=== PATIENT | female | born 1985 | race Caucasian/White ===

== ENCOUNTER 2017-10-17 08:48 | Emergency (ER) | payer BC ==
--- NOTE | 2017-10-17 08:52 | PHYS DOC ---
Adult General Chief Complaint Chief Complaint: back pain HPI HPI Patient is a 32 year old female who presents with low back pain, right sided hip pain with intermittent numbness in right leg. She states he's had issues with her back over the last several years and usually when it flares up she rests overnight and she scared to go the next day. She states this flared up about 2-3 weeks ago she seen a chiropractor 5 times. 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 She states the pain is mainly in the right hip and goes down the back of her leg. She states she is having some intermittent numbness of the thigh and calf that resolves during the day. She states it's worse when she tries to bend over and then tries to move her leg up to like her shoes she states it's very difficult to do. She denies any focal weakness in her leg. She denies any trauma to her back. She does have an appointment with orthopedic surgeon on of this week. He told her over the phone she might have a herniated disc. Review of Systems Review of Systems Constitutional: Denies fever or chills [] Eyes: Denies change in visual acuity, redness, or eye pain [] HENT: Denies nasal congestion or sore throat [] Respiratory: Denies cough or shortness of breath [] Cardiovascular: No additional information not addressed in HPI [] GI: Denies abdominal pain, nausea, vomiting, bloody stools or diarrhea [] : Denies dysuria or hematuria [] Musculoskeletal: Positive for back pain Integument: Denies rash or skin lesions [] Neurologic: Denies headache, focal weakness or sensory changes [] Endocrine: Denies polyuria or polydipsia [] All other systems were reviewed and found to be within normal limits, except as documented in this note. Physical Exam Physical Exam Constitutional: Well developed, well nourished, no acute distress, non-toxic appearance. [] HENT: Normocephalic, atraumatic, bilateral external ears normal, oropharynx moist, no oral exudates, nose normal. [] Eyes: PERRLA, EOMI, conjunctiva normal, no discharge. [] Neck: Normal range of motion, no tenderness, supple, no stridor. [] Cardiovascular:Heart rate regular rhythm, no murmur [] Lungs & Thorax: Bilateral breath sounds clear to auscultation [] Abdomen: Bowel sounds normal, soft, no tenderness, no masses, no pulsatile masses. [] Skin: Warm, dry, no erythema, no rash. [] Back: No tenderness midline, straight leg raise on the right positive for low back pain and right hip pain, full range of motion noted bilateral hips, sensation intact to light touch throughout leg, dorsal pedis pulse 2+ on right lower extremity, no CVA tenderness. [] Extremities: No tenderness, no cyanosis, no clubbing, ROM intact, no edema. [] Neurologic: Alert and oriented X 3, normal motor function, normal sensory function, no focal deficits noted. [] Psychologic: Affect normal, judgement normal, mood normal. [] EKG EKG [] Radiology/Procedures Radiology/Procedures [address] [address] IMAGING REPORT Signed PATIENT: LALO ALLEN ACCOUNT: [id number] : 1985 LOCATION: ER AGE: 32 SEX: F EXAM STATUS: REG ER ORD. PHYSICIAN: LEANN ADAM MD REASON: pain PROCEDURE: LUMBAR SPINE 2-3V Indication: Low back pain. Technique: 3 views of the lumbar spine Comparison: None Findings: Lumbar spine is in normal anatomic alignment. There are 5 lumbar-type vertebral bodies. No compression deformities. No significant intervertebral disc space narrowing, endplate sclerosis or osteophytosis. Facet joints are in within normal limits. SI joints within normal limits. Visualized soft tissues in the abdomen and pelvis are within normal limits. Impression: No significant evidence of degenerative disc disease in the lumbar spine. Normal alignment of lumbar spine. DICTATED AND SIGNED BY: AJIT VILLEDA DO DATE: 10/17/17 0944 CC: LEANN ADAM MD; PCP,NO ~ Impressions: Back pain Course & Med Decision Making Course & Med Decision Making Pertinent Labs and Imaging studies reviewed. (See chart for details) Straight leg raise she does complain of lower lumbar pain, she denies any pain radiating to the back of her leg. X-rays do not show any acute abnormality's. She's having intermittent numbness in her leg. I've offered MRI and she states she did rather not have it done today. I agree since she's having intermittent symptoms as does not have to happen today. I spoke with Dr. Martin with orthopedic surgery regarding the patient's physical exam findings, neuro exam and symptomatology. He is agreeable to discharging her with steroids and muscle relaxants. I've written a prescription for 20 mg twice a day prednisone for 5 days in addition to 10 mg every 8 hours Flexeril. Return precautions given she is agreeable to the plan and being discharged in stable condition this time. Dragon Disclaimer Dragon Disclaimer This electronic medical record was generated, in whole or in part, using a voice recognition dictation system. Departure Departure: Impression: Primary Impression: Back pain Disposition: HOME, SELF-CARE Condition: STABLE Referrals: PCPMARITZA (PCP) TRESSA MARTIN DO Patient Instructions: Back Pain, Adult Additional Instructions: The x-rays of your back did not show any fractures or other abnormalities. Your being discharged home with prednisone one tablet twice a day for the next 5 days and cyclobenzaprine which is a muscle relaxer also known as Flexeril. It's 1 tablet every 8 hours as needed for pain and discomfort. If it makes her sleepy you can take it before you go to bed and skip the other doses. If you develop numbness in your leg, weakness, severe pain, troubles urinating, numbness in your genital area or other concerns please return immediately back to the ER. You will need to touch base with your orthopedic surgeon on Thursday. Scripts Cyclobenzaprine Hcl (CYCLOBENZAPRINE HCL) 10 Mg Tablet 1 TAB PO TID Y for MUSCLE SPASMS, #30 TAB Prov: LEANN ADAM MD 10/17/17 Prednisone (PREDNISONE) 20 Mg Tablet 1 TAB PO BID, #10 TAB Prov: LEANN ADAM MD 10/17/17 Problem Qualifiers Primary Impression: Back pain Back pain location: low back pain Chronicity: acute Back pain laterality: midline Sciatica presence: unspecified whether sciatica present Qualified Codes: M54.5 - Low back pain LEANN ADAM MD Oct 17, 2017 08:52
[2017-10-17 09:00] VITALS: BP 102/64
--- NOTE | 2017-10-17 09:49 | RAD ---
Indication: Low back pain. Technique: 3 views of the lumbar spine Comparison: None Findings: Lumbar spine is in normal anatomic alignment. There are 5 lumbar-type vertebral bodies. No compression deformities. No significant intervertebral disc space narrowing, endplate sclerosis or osteophytosis. Facet joints are in within normal limits. SI joints within normal limits. Visualized soft tissues in the abdomen and pelvis are within normal limits. Impression: No significant evidence of degenerative disc disease in the lumbar spine. Normal alignment of lumbar spine.
[2017-10-17] MEDS ORDERED: CYCL-331 PO (10:58)
[2017-10-17] MEDS ORDERED: PRED20TA PO (10:58)
== END 2017-10-17 11:08 | disposition home or self-care (01) ==
LOC: ER 08:48
DX: M54.5 Low back pain (principal); M25.551 Pain in right hip; R20.0 Anesthesia of skin
CPT/HCPCS: 72100; 99284